=== PATIENT | female | born 1955 | race Caucasian/White ===

== ENCOUNTER 2016-10-20 23:52 | Emergency (ER) | payer OTHER ==
[~2016-10-20] VITALS: Ht 170.2 cm; Wt 93.2 kg
[~2016-10-20 23:52] MED LIST: ALPR1TAB2 PO; BUPR300T48 PO; LEVO200T6 PO; SERT100T PO
[2016-10-21 00:12] VITALS: Ht 170.2 cm; Wt 93.2 kg
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
[2016-10-21] MEDS ORDERED: ONDANSETRON (ODT) 4 MG TAB ODT STA (01:27)
[2016-10-21] MEDS ORDERED: HYDROCODONE/APAP (10/325) TAB PO ONE (01:30)
--- NOTE | 2016-10-21 02:42 | RADRPT ---
PROCEDURE: XR Chest. CLINICAL INDICATION: Chest pain TECHNIQUE: Single frontal view of the chest was obtained COMPARISON: CT abdomen and pelvis dated 09/08/2015. FINDINGS: Cardiomegaly. Mild left lung base atelectasis. Mild to moderate hiatal hernia is again seen, danny tible with CT abdomen and pelvis dated 09/08/2015. There is no pleural effusion or pneumothorax. IMPRESSION: 1. Mild to moderate hiatal hernia. 2. Left lung base atelectasis. 3. Otherwise, no acute process in the chest RPTAT: [facility] Physician Charly Date Time Electronically viewed and signed by Physician Charly on 10/21/2016 02:42 RS/
--- NOTE | 2016-10-21 02:43 | RADRPT ---
PROCEDURE: XR right shoulder. CLINICAL INDICATION: Right shoulder pain TECHNIQUE: 2 views of the right shoulder were performed. COMPARISON: None. FINDINGS: There is normal osseous mineralization and alignment. No acute fracture or osseous lesion is identified. There are normal joints without evidence of arthritis or dislocation. The soft tissues are unremarkable. IMPRESSION: Unremarkable right shoulder. RPTAT: [facility] Physician Charly Date Time Electronically viewed and signed by Physician Charly on 10/21/2016 02:43 RS/
--- NOTE | 2016-10-21 02:45 | RADRPT ---
PROCEDURE: XR Lumbar Spine. CLINICAL INDICATION: Pain in the lumbar spine. TECHNIQUE: AP, lateral and cone-down lateral view of the lumbar spine were obtained. COMPARISON: No prior studies are available for comparison. FINDINGS: There is normal vertebral mineralization. Mild grade 1 anterolisthesis of L4-L5 with mild disk spac e narrowing; and posterior facet degenerative changes at the L4-5 end L5-S1 levels are moderate. Mil d to moderate degenerative changes in the posterior facets at the L2-3 and L3-4 levels. No acute fracture. The disc spaces are normal in appearance. The posterior elements are unremarkable. The soft tissues appear normal. IMPRESSION: 1. Grade 1 anterolisthesis of L4-L5. 2. Moderate posterior facet degenerative changes at the L4-5 and L5-S1 levels. RPTAT: [facility] Physician Charly Date Time Electronically viewed and signed by Physician Charly on 10/21/2016 02:45 RS/
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
[2016-10-21 02:55] VITALS: BP 160/75; PULSE 72; RESP 19; TEMP 98.1
--- NOTE | 2016-10-21 03:14 | RADRPT ---
PROCEDURE: CT Cervical Spine without contrast. CLINICAL INDICATION: Injury and pain. TECHNIQUE: CT scan of the cervical spine was performed on a multi-detector high-resolution CT [facility]. Contiguous axial images were obtained without intravenous contrast. Coronal and sagittal ref ormatted images were also obtained. Images were reviewed on the PACS workstation. One or more of the following dose reduction techniques were used: - Automated exposure control. - Adjustment of the mA and/or kV according to patient size. - Use of iterative reconstruction technique. Exam CTD/vol = 22.29 mGy. Total exam DLP = 538.83 mGy-cm. COMPARISON: No prior studies are available for comparison. FINDINGS: There is no acute fracture or subluxation. There is straightening of the cervical lordosis. Cervic al vertebral body heights and alignment are otherwise within normal limits. The craniovertebral latosha ction is within normal limits. There are small marginal osteophytes present from C4 through C7. At C2-C3, the disk height is within normal limits. There is no central canal or neural foraminal st enosis. At C3-C4, the disk height is within normal limits. There is no central canal or neural foraminal st enosis. At C4-C5, there is mild loss of disk height and a mild diffuse disk osteophyte complex. There is no central canal or neural foraminal stenosis. At C5-C6, there is moderate loss of disk height and a mild diffuse disk osteophyte complex resulting in mild central canal stenosis. There is moderate left and mild right neural foraminal stenosis. At C6-C7, there is mild loss of disk height. There is no central canal or neural foraminal stenosis . At C7-T1, the disk height is within normal limits. There is no central canal or neural foraminal st enosis. There is no paraspinal mass or collection. IMPRESSION: No acute fracture or subluxation. At C5-C6, there is moderate discogenic disease and a mild diffuse disk osteophyte complex resulting in mild central canal stenosis. There is moderate left and mild right neural foraminal stenosis. Mild discogenic disease and C4-C5 and C6-C7. .Al Ambrocio MD, Date Time Electronically viewed and signed by .Al Ambrocio MD, MD on 10/21/2016 03:14 .T/
[2016-10-21] MEDS ORDERED: IBUP-1542 PO (03:21)
== END 2016-10-21 03:29 | disposition home or self-care (01) ==
LOC: E/R 23:52
DX: S19.9XXA Unspecified injury of neck, initial encounter (principal); S39.92XA Unspecified injury of lower back, initial encounter; S49.91XA Unspecified injury of right shoulder and upper arm, initial encounter; E03.9 Hypothyroidism, unspecified; I10 Essential (primary) hypertension; R51 Headache; V49.49XA Driver injured in collision with other motor vehicles in traffic accident, initial encounter
CPT/HCPCS: 70450; 71010; 72100; 72125; 73030; Z7502; Z7610

== ENCOUNTER 2016-12-03 09:15 | Emergency (ER) | payer OTHER ==
[~2016-12-03] VITALS: Ht 160 cm; Wt 91.5 kg
[~2016-12-03 09:15] MED LIST changes: +IBUP-1542 PO
[2016-12-03 09:21] VITALS: Ht 160 cm; Wt 91.5 kg
[2016-12-03 09:35] VITALS: RESP 18
[2016-12-03] MEDS ORDERED: IBUP-1542 PO (10:10)
[2016-12-03] MEDS ORDERED: CLIN-73 PO (10:11)
[2016-12-03] MEDS ORDERED: HYDR-906 PO (10:11)
--- NOTE | 2016-12-03 10:13 | ERD ---
ER Documentation Chief Complaint Date/Time DATE: 12/03/16 TIME: 10:12 Chief Complaint dental pain x 2 days; HPI Patient is a 60-year-old female who presents to the emergency department with right molar pain 2 days. Patient states he been taking ibuprofen with no alleviation of her pain. Patient does report history of dental caries which she has not had fixed. Patient denies bleeding or discharge. Patient states she last saw a dentist over 2 years ago. Patient denies any fevers, chills, nausea, vomiting, chest pain, shortness of breath, headache, dizziness, loss of consciousness. ROS All systems reviewed and are negative except as per history of present illness. Medications Home Meds Active Scripts Clindamycin Hcl* (Clindamycin Hcl*) 300 Mg Capsule, 300 MG PO TID for 10 Days, CAP Prov:PROSPER PITTMAN PA-C 12/03/16 Hydrocodone/Acetaminophen (Sugar Tree 5-325 Tablet) 1 Each Tablet, 1 TAB PO Q6H Y for PAIN, #7 TAB Prov:PROSPER PITTMAN PA-C 12/03/16 Ibuprofen* (Motrin*) 600 Mg Tab, 600 MG PO Q6, #30 TAB Prov:PROSPER PITTMAN PA-C 12/03/16 Ibuprofen* (Motrin*) 600 Mg Tab, 600 MG PO Q6H Y for PAIN AND OR ELEVATED TEMP, #20 TAB Prov:SHILPI WILLS MD 10/21/16 Reported Medications Sertraline Hcl* (Zoloft*) 100 Mg Tablet, 100 MG PO DAILY, #30 TAB 09/08/15 Levothyroxine Sodium* (Levothyroxine Sodium*) 200 Mcg Tablet, 250 MCG PO BEFORE BREAKFAST, #30 TAB 09/08/15 Alprazolam* (Xanax*) 1 Mg Tab, 1 MG PO DAILY Y for ANXIETY, TAB 09/08/15 Bupropion Hcl* (Wellbutrin XL*) 300 Mg Tab.sr.24h, 300 MG PO DAILY, TAB.SA 09/08/15 Allergies Allergies: Coded Allergies: Penicillins (Verified Allergy, Severe, 09/08/15) PMhx/Soc History of Surgery: No (LAP BAND 2007, LAP BAND REMOVAL 2013) Anesthesia Reaction: No Hx Neurological Disorder: No Hx Respiratory Disorders: No Hx Cardiac Disorders: No Hx Psychiatric Problems: Yes (ANXIETY, DEPRESSION) Hx Miscellaneous Medical Probl: No Hx Alcohol Use: No Hx Substance Use: No Hx Tobacco Use: No FmHx Family History: No diabetes Physical Exam Vitals Vital Signs Date Time Temp Pulse Resp B/P Pulse Ox O2 Delivery O2 Flow Rate FiO2 12/03/16 10:50 184/87 12/03/16 09:35 18 189/78 12/03/16 09:21 97.8 64 18 206/100 99 Physical Exam GENERAL: Well-developed, well-nourished female. Appears in no acute distress. Speaking in full sentences HEAD: Normocephalic, atraumatic. No deformities or ecchymosis. EYE: Pupils equal, round, and reactive to light. EOMs intact. No conjunctival erythema. No eye discharge. ENT: External ear without any masses or tenderness. Auditory canals clear bilaterally. TM visualized bilaterally, non-erythematous, non-bulging. Nasal mucosa pink with no discharge. Oropharynx is pink without any tonsillar erythema or exudates. No uvula deviation. No kissing tonsils. Poor dentition noted. Right lower molar tender to palpation. No active bleeding. Surrounding gum appears erythematous. NECK: Supple. No meningismus. Normal ROM of the neck. LUNG: Clear to auscultation bilaterally. No rhonchi, wheezing, rales or coarse breath sounds. HEART: Regular rate and rhythm. No murmurs, rubs or gallops. EXTREMITIES: Equal pulses bilaterally. No peripheral clubbing, cyanosis or edema. No unilateral leg swelling. NEUROLOGIC: Alert and oriented x3, cooperative. Mood and affect appropriate to situation. Cranial nerves II through XII are grossly intact. Normal speech. Motor exam: 5/5 strength in upper and lower extremities. Sensory exam: Sensation intact to light touch on all four extremities. Cerebellar function exam: Rapid alternating movements intact. No dysmetria on [id number] test. Steady gait. No pronator drift. KIN: Normal color. Warm and dry. No rashes or lesions. Results 24 hrs Current Medications Medications (Trade) Dose Ordered Sig/Ngozi Route PRN Reason Start Time Stop Time Status Last Admin Dose Admin Clonidine (Catapres) 0.1 mg ONCE ONCE PO 12/03/16 10:30 12/03/16 10:31 DC 12/03/16 10:05 Tramadol HCl (Ultram) 50 mg ONCE ONCE PO 4/15/17 11:00 12/03/16 11:01 DC 12/03/16 10:57 Procedures/MDM ED COURSE: The patient was stable throughout ED course. I kept the patient and/or family informed of laboratory and diagnostic imaging results throughout the ED course. . MEDICATIONS GIVEN: Tramadol Patient tolerated medication well with no adverse reactions. Patient reported improvement in pain. MEDICAL DECISION MAKING: This is a 60-year-old female who presents with right lower molar pain 2 days.. Vital signs were reviewed. Patient is afebrile. Patient is not hypoxic. Patient 's blood pressure was noted to be elevated. Oral exam revealed poor dentition and tenderness to palpation of the right lower molars.. The patient did not have trismus, muffled voice, uvula deviation, unilateral tonsillar swelling, or drooling. No signs of neck swelling or hyperextension of the neck noted. Given these findings, the patient's presentation is most consistent with dental caries vs. tooth abscess. I have a much lower clinical concern for epiglottitis , strep pharyngitis, peritonsillar abscess, retropharyngeal abscess or James's angina. I discussed the patient's blood pressure findings with my supervising physician Dr. Kenny. Given that patient had a blood pressure of 206/100, she was given clonidine 0.1 mg. Patient's blood pressure was noted to be down trending. She denied any chest pain, shortness of breath, diaphoresis, headache , dizziness or loss of consciousness. PRESCRIPTIONS: Ibuprofen, Sugar Tree, clindamycin DISCHARGE: Patient appeared stable at the time of discharge. Patient appeared stable for outpatient management. Patient advised to complete full course of antibiotics. . I have instructed the patient to see a dentist today or tomorrow. I have instructed the patient to promptly return to the ER for any new or worsening symptoms including increased pain, fever, neck swelling/stiffness, drooling, rash or difficulty breathing. The patient and/or family expressed understanding of and agreement with this plan. All questions were answered. Home care instructions were provided. Patient's blood pressure was elevated (>120/80) but appears stable without evidence of hypertensive emergency, hypertensive urgency or end-organ failure. I had discussion with the patient about the risks of hypertension. I have advised the patient to follow up with his/her primary care physician for outpatient monitoring and treatment for hypertension in 2-3 days. I have instructed the patient to return to the ER for any new or worsening symptoms including chest pain, shortness of breath, headache, blurred vision, confusion, nausea, vomiting or LOC. Departure Diagnosis: Primary Impression: Tooth pain Additional Impression: Hypertension Hypertension type: unspecified secondary hypertension Qualified Code: I15.9 - Secondary hypertension Condition: Stable Patient Instructions: Dental Pain Referrals: [facility] YOU HAVE RECEIVED A MEDICAL SCREENING EXAM AND THE RESULTS INDICATE THAT YOU DO NOT HAVE A CONDITION THAT REQUIRES URGENT TREATMENT IN THE EMERGENCY DEPARTMENT. FURTHER EVALUATION AND TREATMENT OF YOUR CONDITION CAN WAIT UNTIL YOU ARE SEEN IN YOUR DOCTORS OFFICE WITHIN THE NEXT 1-2 DAYS. IT IS YOUR RESPONSIBILITY TO MAKE AN APPOINTMENT FOR FOLOW-UP CARE. IF YOU HAVE A PRIMARY DOCTOR --you should call your primary doctor and schedule an appointment IF YOU DO NOT HAVE A PRIMARY DOCTOR YOU CAN CALL OUR PHYSICIAN REFERRAL HOTLINE AT IF YOU CAN NOT AFFORD TO SEE A PHYSICIAN YOU CAN CHOSE FROM THE FOLLOWING [facility] [address] [facility]. [facility] [address] [facility] [address] [facility] [facility] [address] [facility]. [facility] [address] [facility]. [facility]. [address] [facility]. [facility] YOU HAVE RECEIVED A MEDICAL SCREENING EXAM AND THE RESULTS INDICATE THAT YOU DO NOT HAVE A CONDITION THAT REQUIRES URGENT TREATMENT IN THE EMERGENCY DEPARTMENT. FURTHER EVALUATION AND TREATMENT OF YOUR CONDITION CAN WAIT UNTIL YOU ARE SEEN IN YOUR DOCTORS OFFICE WITHIN THE NEXT 1-2 DAYS. IT IS YOUR RESPONSIBILITY TO MAKE AN APPOINTMENT FOR FOLOW-UP CARE. IF YOU HAVE A PRIMARY DOCTOR --you should call your primary doctor and schedule and appointment IF YOU DO NOT HAVE A PRIMARY DOCTOR YOU CAN CALL OUR PHYSICIAN REFERRAL HOTLINE AT . IF YOU CAN NOT AFFORD TO SEE A PHYSICIAN YOU CAN CHOSE FROM THE FOLLOWING [facility] INSTITUTIONS: [facility] [address] [place] [address] [facility] [address] [place] [address] [facility] [address] [place] [address] [facility] ([facility] walk in clinic) Additional Instructions: Call your primary care doctor TOMORROW for an appointment during the next 1-2 days.See the doctor sooner or return here if your condition worsens before your appointment time. Follow-up with a dentist in the next 1-2 days. See referral information is provided. PROSPER PITTMAN PA-C Dec 03, 2016 10:13
[2016-12-03 10:50] VITALS: BP 184/87
[2016-12-03] MEDS ORDERED: traMADol 50 MG TAB PO ONE (11:00)
== END 2016-12-03 11:38 | disposition home or self-care (01) ==
LOC: FTE 09:15
DX: K08.89 Other specified disorders of teeth and supporting structures (principal); I15.9 Secondary hypertension, unspecified
CPT/HCPCS: Z7610 ×2; 99284

== ENCOUNTER 2018-03-17 17:20 | Emergency (ER) | END 2018-03-17 20:54 | disposition home or self-care (01) ==